=== PATIENT | female | born 1945 | race African-American/Black ===

== ENCOUNTER 2021-10-12 14:02 | Emergency (ER) | payer OTHER ==
[~2021-10-12] VITALS: Ht 167.6 cm; Wt 65.0 kg
[2021-10-12 18:34] LABS: BASOPHILS % 0.5 % (0.0-2.0); EOSINOPHILS % 0.8 % (0.0-5.0); HEMATOCRIT. 30.5 % (36.0-48.0); HEMOGLOBIN. 9.9 g/dL (12.0-16.0); LYMPHOCYTES % 28.7 % (20.0-50.0); MEAN CORPUSCULAR HEMOGLOBIN 27.5 pg (28.0-32.0); MEAN CORPUSCULAR VOLUME 84.6 fL (81.0-99.0); MEAN PLATELET VOLUME 9.3 fl (7.4-10.4); MONOCYTES % 8.5 % (2.0-8.0); NEUTROPHILS % 61.5 % (40.0-76.0); PLATELET 246 x1000/uL (130-400); RED CELL DISTRIBUTION WIDTH 13.8 % (11.6-14.6)
[2021-10-12 18:40] LABS: CHLORIDE 112 mEq/L (98-107)
[2021-10-12] MEDS ORDERED: HYDRALAZINE 20MG/ML VIAL IV ONE (22:45)
[2021-10-12 23:03] VITALS: BP 175/74
== END 2021-10-12 23:49 | disposition short-term general hospital (02) ==
LOC: ER 14:39
DX: R55 Syncope and collapse (principal); F03.90 Unspecified dementia, unspecified severity, without behavioral disturbance, psychotic disturbance, mood disturbance, and anxiety; G20 Parkinson's disease
CPT/HCPCS: 36415; 70450; 71045; 80053; 83880; 84484; 85025; 93005; 99285; J0360